=== PATIENT | male | born 1960 | race Caucasian/White ===

== ENCOUNTER 2025-07-30 19:13 | Inpatient (IN) | payer OTHER, MEDICARE ==
[~2025-07-30] VITALS: Ht 177.8 cm; Wt 83.2 kg
[2025-07-30 20:06] LABS: MEAN PLATELET VOLUME 8.4 FL (7.4-10.4); RED CELL DISTRIBUTION WIDTH 13.1 % (11.5-14.5)
[2025-07-30 20:22] LABS: CREATININE 1.20 MG/DL (0.60-1.10); TOTAL CARBON DIOXIDE 23.3 MMOL/L (24-32); eCRCL 63 ML/MIN; eGFR 61 ML/MIN
--- NOTE | 2025-07-30 21:54 | Physician Documentation ---
History of Present Illness ~ Chief Complaint: Abdominal Pain Stated Complaint: STOMACH ACHE LOWER BELLY Time Seen by MD: 21:53 Mode of Arrival: POV HPI Patient presented to the emergency room with one-week history of abdominal pain that has been gradually worsening. No significant alcohol use. Bladder and bowel are normal. No nausea. Medication Reconciliation Allergies: Coded Allergies: No Known Allergies (Unverified , 07/30/25) Review of Systems ROS All review of systems negative except as per HPI Physical Exam Vital Signs: Temperature: 97.5, Source: Temporal, Heart Rate: 80, Respiratory Rate: 16, BP: 189/102, Pulse Oximetry: 98, Weight: 83.200 Oxygen Flow Rate: 0 Physical Exam General: Patient is awake, alert, oriented x4. Appears uncomfortable Head: Normocephalic and atraumatic. Eyes: Conjunctival normal. EOMI. PERRL. ENT: Mucous membranes moist. Neck: Supple, trachea is midline. Chest: Clear to auscultation bilaterally without rales, rhonchi, or wheezes. There is no accessory muscle use or retractions. Cardiac: RRR without murmurs, gallops, or rubs. Abd: Soft, nondistended, nontender, with normoactive bowel sounds. No guarding, rebound, or rigidity. Progress Results/Orders Results/Orders Orders - MICHAEL JONES MD Urinalysis, Cult If Indicated (07/30/25 19:25) Completed Orders - MICHAEL JONES MD Cbc/Diff (07/30/25 19:25) BMP (07/30/25 19:25) Lipase (07/30/25 19:25) CMP (07/30/25 19:25) Vital Signs 07/30/25 07/30/25 07/30/25 19:20 21:30 21:39 Temp 97.5 Pulse 90 80 Resp 16 16 16 B/P (MAP) 155/91 189/102 (131) Pulse Ox 97 98 O2 Flow Rate 0 0 Laboratory Tests Test 07/30/25 19:58 White Blood Count 15.6 H Red Blood Count 5.18 Hemoglobin 16.2 Hematocrit 47.3 Mean Corpuscular Volume 91.3 Mean Corpuscular Hemoglobin 31.4 H Mean Corpuscular Hemoglobin Concent 34.4 Red Cell Distribution Width 13.1 Platelet Count 262 Mean Platelet Volume 8.4 Neutrophils (%) (Auto) 76.6 H Lymphocytes (%) (Auto) 14.5 L Monocytes (%) (Auto) 7.5 Eosinophils (%) (Auto) 0.6 Basophils (%) (Auto) 0.8 Neutrophils # (Auto) 11.9 H Lymphocytes # (Auto) 2.3 Monocytes # (Auto) 1.2 H Eosinophils # (Auto) 0.1 Basophils # (Auto) 0.1 CBC Comment Sodium Level 138 Potassium Level 4.0 Chloride Level 102 Carbon Dioxide Level 23.3 L Anion Gap 13 Blood Urea Nitrogen 12 Creatinine 1.20 H Estimated GFR/1.73 m2 61 BUN/Creatinine Ratio 10.0 Glucose Level 114 H Calcium Level 9.5 Total Bilirubin 0.9 Aspartate Amino Transf (AST/SGOT) 13 Alanine Aminotransferase (ALT/SGPT) 20 Alkaline Phosphatase 85 Total Protein 8.3 H Albumin 3.8 Globulin 4.5 H Albumin/Globulin Ratio 0.8 L Lipase > 375 H Chemistry Comments Medical Decision Making Findings Patient presents to the emergency room for evaluation of abdominal pain as per HPI. Differentials include but are not limited to gastritis cholecystitis pancreatitis diverticulitis kidney stone small-bowel obstruction therefore emergent labs ordered. Labs show severe pancreatitis. No history of alcohol abuse. Liver enzymes are reassuring IV fluids initiated along with pain management. Given severe elevation of lipase along with unknown cause for patient's pancreatitis we will admit for further investigation/treatment. Departure Admitted to Inpatient Unit: yes, to hospitalist Impression: Primary Impression: Pancreatitis Condition: Guarded Referrals: NO PRIMARY CARE PROVIDER (PCP) Signature Scribe Signature: No scribe Attestation: The note accurately reflects work and decisions made by me.Michael Jones MD 07/30/25 22:20 MICHAEL JONES MD Jul 30, 2025 21:54
[2025-07-30] MEDS: normal saline 1000ML IV soln IVB ONE (22:48)
[2025-07-30] MEDS: ondansetron/PF 4mg/2ml inj IV ONE (22:49)
[2025-07-30] MEDS: morphine 4 MG/ML inj SYRINge IV ONE (22:51)
[2025-07-30] MEDS ORDERED: ASPI-1265 PO (22:53)
[2025-07-30 23:07] LABS: CHOL/HDL RATIO 4.9 (0.00-4.99); LDL CHOLESTEROL 141 MG/DL (50-100)
[2025-07-30 23:15] LABS: LEUKOCYTE ESTERASE ,URINE NEGATIVE (Neg); NITRITES, URINE NEGATIVE (Neg); OCCULT BLOOD,URINE NEGATIVE (Neg)
[2025-07-30 23:20] LABS: UA COLLECTION TYPE CLN CATCH MIDSTREAM
[2025-07-30] MEDS ORDERED: ondansetron/PF 4mg/2ml inj IV PRN (23:30)
[2025-07-30] MEDS ORDERED: magnesium Cl slow-release 64mg tablet PO PRN (23:30)
[2025-07-30] MEDS ORDERED: magnesium sulf-water 2g/50mL 50 ML IV PRN (23:30)
[2025-07-30] MEDS ORDERED: potassium Cl 40MEQ/1/2NS 520ml 520 ML IV PRN (23:30)
[2025-07-30] MEDS ORDERED: potassium Cl 20 mEq SR tablet PO PRN ×2 (23:30)
[2025-07-30] MEDS ORDERED: magnesium sulf-water 4G/100mL 100 ML IV PRN (23:30)
--- NOTE | 2025-07-30 23:36 | HISTORY AND PHYSICAL-Residence ---
History & Physical Providers to CC Resident Creating Document: ALEX GREGG RES ~ History of Present Illness Reason for Admit\Complaint: abdominal pain History of Present Illness Patient is a 65-year-old male with no significant past medical history, not on any regular medications except for daily baby aspirin, who presents with a abdominal pain for the past one week. The pain was initially intermittent, waxing and waning, located in the periumbilical region. Since yesterday, the pain has progressively worsened, now localized to the hypogastric region. He described it as a stabbing in nature, rated 8/10 at its speak last night, prompting him to seek medical attention. No aggravating or relieving factors. He denies nausea, vomiting, fever, or chills. He has not noted any changes in bowel habits. He has not seen a primary care physician for the past 15 years. Social history is notable for smoking one pack of cigarettes daily for the past 20 years. He denies alcohol use or recreational drugs. Allergies: Coded Allergies: No Known Allergies (Unverified , 07/30/25) Home Medications Home Medications Active Reported Aspirin 81 Mg Tab.chew 1 Tab PO DAILY 30 Days Past Medical History Past Medical History Noncontributory Past Surgical History Surgical History Comment Noncontributory Past Social History Social History Comment He has not seen a primary care physician for the past 15 years. Social history is notable for smoking one pack of cigarettes daily for the past 20 years. He denies alcohol use or recreational drugs. ROS All Other Systems: Reviewed and Negative ROS As stated above in the HPI, otherwise all systems are reviewed and negative. Exam Vitals: Vital Signs Date Time Temp Pulse Resp B/P (MAP) Pulse Ox O2 Delivery O2 Flow Rate FiO2 07/30/25 22:54 97 16 197/102 (133) 97 0 07/30/25 19:20 97.5 General: Awake and Alert, no acute distress. HEENT: Conjunctiva pink, Sclera clear, Mucus Membranes moist. Neck: Supple without masses and tenderness. Resp: Unlabored. Lungs clear to auscultation bilaterally. Heart: Regular Rate and rhythm, normal S1 and S2 without murmur, rub or gallop. Abdomen: Epigastric, hypogastric, and periumbilical region tenderness. Bowel sounds present Extremities: No cyanosis,clubbing or edema. Skin: Warm and Dry. Diagnostic Data Last Recorded Lab Results: 07/30/[id number]/[id number]/251957 Advance Care Planning Advanced Care plannin - 30 Minutes Additional Plan Assessment and plan 1. Abdominal Pain, most likely acute pancreatitis Progressively worsening, one week duration, stabbing, hypogastric region No history of gallstones, alcohol use, hyper triglyceridemia, or medication that may cause pancreatitis. Autoimmune disease not suspected Plan: Aggressive IV hydration, received NS 2 L bolus in ER Continue LR 150 mL/hours Pain management; morphine Monitor electrolytes, renal function, and hematocrit closely Abdominal ultrasound ordered to assess for gallstones, biliary pathology Consider CT abdomen/pelvis with IV contrast after 48-72 hours 2. Hypertensive emergency BP 197/107 + ODALIS Not on home medications Labetalol 10 mg IV Amlodipine 10 mg p.o. daily Add another antihypertensive i.e. lisinopril if BP remains above the goal 3. Acute kidney injury, likely prerenal Unknown baseline. Poor oral intake because of abdominal pain IV hydration, continue LR 150 mL/hour Monitor BMP 4. Hyperlipidemia LDL 141, goal less than 70 Amlodipine 10 mg p.o. daily initiated 5. Tobacco use disorder Smokes one pack per day for 20 years Initiated smoking cessation counseling Nicotine replacement therapy Code status: Full code DVT prophylaxis: Bryanx Alex Gregg Internal Medicine Resident Addendum I saw and discussed the pt with the resident team and agree with assessment and plan as documented Date of Service: Jul 30, 2025 Billing Provider: TALA PIERCE MD, SHAMS, RES Jul 30, 2025 23:36 TALA PIERCE MD Jul 31, 2025 07:17
[2025-07-31] VITALS (7 sets, daily range): BP systolic 92–165; BP diastolic 48–84; PULSE 70–88; RESP 16–20; TEMP 96.1–98.3; O2SAT 95–98
[2025-07-31] MEDS: labetalol 20mg/4ml (5mg/ml) syringe IV ONE (00:19)
[2025-07-31] MEDS: nicotine 21mg patch - 24 hr TD ONE (00:25)
[2025-07-31] MEDS: ringers solution, lacted 1,000 ML IV SCH (00:27)
[2025-07-31 01:01] LABS: CREATININE,URINE RANDOM 244.0 MG/DL; UA UREA RANDOM 1143.0 MG/DL
[2025-07-31] MEDS: hydrALAZINE 20mg/ml inj. IV ONE (01:09)
[2025-07-31 01:56] LABS: MEAN PLATELET VOLUME 8.4 FL (7.4-10.4); RED CELL DISTRIBUTION WIDTH 13.4 % (11.5-14.5)
[2025-07-31 02:10] LABS: CREATININE 1.19 MG/DL (0.60-1.10); TOTAL CARBON DIOXIDE 24.0 MMOL/L (24-32); eCRCL 64 ML/MIN; eGFR 61 ML/MIN
[2025-07-31] MEDS: HYDROcodone/acetaminophen 5mg/325mg tablet PO PRN (02:37)
[2025-07-31] MEDS: K and/or MAG REPLACEMENT MC SCH (08:00)
[2025-07-31] MEDS: enoxaparin 40mg/0.4ml syringe SUBCUT SCH (11:00)
--- NOTE | 2025-07-31 11:19 | RADIOLOGY REPORT ---
US ULTRASOUND OF ABDOMEN HISTORY: pancreatitis, looking for gallstones COMPARISON: None TECHNIQUE: Transverse and longitudinal grayscale and color sonographic images were obtained of the ab domen. FINDINGS: Liver: - Size: 14.4 cm - Echogenicity: Normal - Surface Contour: Smooth - Liver Lesion(s): None - Portal Vein: Patent and forward flowing. - Bile Ducts: Normal. The common bile duct measures 4.8 mm. Gallbladder: Normal. The sonographic ch sign is negative. Pancreas: Not well visualized. Kidneys: - Right kidney size: 10.8 cm. There is no hydronephrosis, renal calculi, or mass lesion. Aorta and Inferior Vena Cava: The visualized portions of the abdominal aorta and intrahepatic vena ca va are normal. Other: None IMPRESSION: Unremarkable abdominal ultrasound. Pancreas appears unremarkable and not well visualized.
--- NOTE | 2025-07-31 15:06 | PROGRESS NOTE- Residence ---
Progress Note - Resident Providers to CC Resident Creating Document: MINI KEARNS RES ~ Antibiotic Timeout Antibiotic Ordered?: No Subjective Patient was seen and examined at bedside. He states that his abdominal pain is minimal now, 3/10 severity. No new complaints were reported and wondering the etiology of his pancreatitis. He has good appetite and is able to tolerate clear liquids. He is not in apparent distress. He denies any past regular meds taking including ANti psych and anti convulsants, no Hx of EtoH usage recently and with no knowledge of having diagnosed any symptomatic gall bladder stones before. Asked for the nicotine patch for smoking craving this am. Objective Vital Signs Date Time Temp Pulse Resp B/P (MAP) Pulse Ox O2 Delivery O2 Flow Rate FiO2 07/31/25 11:15 75 130/75 (93) 95 Room Air 07/31/25 10:06 96.1 20 07/31/25 08:00 0.0 Result Diagram: 07/31/25 0141 07/31/25 0141 Awake , alert, and oriented x4, resting comfortably in the bed, in no acute distress HEENT: Atraumatic, normocephalic, EOMI, anicteric sclera ; pink conjunctiva Neck: Trachea midline. Supple, full range of motion, no JVD Cardiac: Regular rhythm, regular rate with no murmurs all over the precordium. Respiratory: Equal breath sounds bilaterally, no tachypnea, no wheezing ,rub or rales, Chest wall is symmetric and without deformity. Gastrointestinal: Epigastric, periumbilical and hypogastric tenderness, Abdomen symmetric, soft, non-distended, no organomegaly, normal bowel sounds x4 quadrant, Musculoskeletal: No pedal edema, no cyanosis Neurological: Speech is clear, alert, and oriented x 4. No motor or sensory deficit, deep tendon reflexes normal, cerebellar intact. Cranial nerves II-XII intact. Skin: Warm and dry Assessment Assessment 65-year-old male with no significant diagnosed past medical history with no regular visit to PCP presented with worsening of acute periumbilical abdominal pain with no radiation who was admitted for the possible acute pancreatitis with highly elevated Lipase. Plan Plan 1. Acute Abdominal Pain, most likely acute pancreatitis induced with possible CBD stone Progressively worsening, one week duration, stabbing, hypogastric region No history of gallstones, alcohol use, trauma, hyper triglyceridemia, hypercalcemia or medication that may cause pancreatitis. Autoimmune disease not suspected Lipase elevated- >375, neutrophilic leukocytosis Plan: 07/31/25: Aggressive IV hydration - Continue LR 150 mL/hour Pain management: Rainelle 10 mg q.6h, discontinued morphine PRN to avoid unnecessary Sphincter of Oddi spasm Abdominal ultrasound shows pancreas unremarkable, common bile duct measures 4.8 mm. Consider possibility of gallstone being already lodged out of CBD before abdomen US. We advance full liquids if he tolerates clear liquids and ordered Pantop p.o. Monitor electrolytes including Calcium, renal function, and CBC closely Consider CT abdomen/pelvis with IV contrast after 48-72 hours if complications. Ruled out the etiology of acute pancreatitis from HyperTG, EtOH induced, viral induced, meds induced etc. 2. Hypertensive emergency BP 197/107 + ODALIS Not on home medications Labetalol 10 mg IV and hydralazine 10 mg IV were given Amlodipine 10 mg p.o. daily was started Add another antihypertensive i.e. lisinopril if BP remains above the goal 07/31/25: Possible HTN Urgency to rule out HTN emergency with no previous baseline record to be compared with Blood pressure reached the goal and maintaining Continue amlodipine 10 mg 3. Acute kidney injury, likely prerenal secondary to dehydration Unknown baseline. Poor oral intake because of abdominal pain Urinalysis shows positive ketones, probably due to dehydration IV hydration, continue LR 150 mL/hour Monitor BMP 4. Hyperlipidemia LDL 141, goal less than 70 07/31/25: TG 121 -continue atorvastatin 10 mg daily -plan to follow up with the PCP to recheck lipid profile in 3-6 months, including potential collateral effects of statin medication for medication compliance 5. Tobacco use disorder Smokes one pack per day for 20 years Initiated smoking cessation counseling Nicotine replacement therapy 07/31/25: Hypotension collateral effects of nicotine patch including coronary spasm was explained to the patient -prescribed nicotine patch 14 mg daily as needed -strongly encouraged to cut down/stopped smoking cigarettes with the encouragement Code status: Full code DVT prophylaxis: sc Lovenox GI prophylaxis: Pantoprazole Pain management: Rainelle Diet/nutrition: Clear liquid Prognosis: Guarded Disposition: Continue IV fluids, plan to advance full liquid diet if patient tolerates the pain while encouraging oral feeding, monitor electrolytes and renal function, PT eval and DC plan. Resident attestation: The patient note has been reviewed and supervised by senior residents PGY-3, Kristin Young Patient was seen, examined and discussed with attending physician Dr Francia Kearns MD Internal Medicine resident, PGY-1 [facility] Date of Service: Jul 31, 2025 Billing Provider: ALEX PORTILLO MD Common Visit Codes: [id number] INP/OBS CARE(HIGH) MINI KEARNS RES Jul 31, 2025 15:06 KRISTIN YOUNG RES Jul 31, 2025 18:31 ALEX PORTILLO MD Aug 01, 2025 09:56
[2025-07-31] MEDS: nicotine 14mg patch - 24hr TD SCH (16:34)
[2025-08-01 06:00] VITALS: BP 135/71; PULSE 70; RESP 15; TEMP 97.6; O2SAT 96
[2025-08-01 06:17] LABS: MEAN PLATELET VOLUME 8.8 FL (7.4-10.4); RED CELL DISTRIBUTION WIDTH 13.1 % (11.5-14.5)
[2025-08-01 06:30] LABS: CREATININE 1.04 MG/DL (0.60-1.10); TOTAL CARBON DIOXIDE 29.0 MMOL/L (24-32); eCRCL 73 ML/MIN; eGFR 72 ML/MIN
[2025-08-01 08:00] VITALS: RESP 16; O2SAT 96
[2025-08-01] MEDS: pantoprazole 40mg Tablet.DR PO SCH (08:39)
[2025-08-01 10:00] VITALS: BP 134/86; PULSE 81; RESP 14; TEMP 97.8; O2SAT 96
--- NOTE | 2025-08-01 15:21 | DISCHARGE SUMMARY-Residence ---
Discharge Summary Providers to CC Resident Creating Document: MINI KEARNS RES ~ Discharge Summary Admission Diagnosis: Acute Pancreatitis, hypertensive urgency Hospital Course DATE OF ADMISSION: 07/30/25 DATE OF DISCHARGE: 08/01/25 Discharge Diagnosis\Comment: Acute Abdominal Pain, most likely acute pancreatitis, unknown etiology at the time of discharge Hypertensive emergency Acute kidney injury, likely prerenal secondary to dehydration Hyperlipidemia Tobacco use disorder Operations\Procedures: None Consultants: None Complications: None Condition on DC: Stable Continued Medications: Aspirin (Aspirin) 81 Mg Tab.chew 1 TAB PO DAILY for 30 Days, #30 TAB Discharge Summary: HPI as per admitting physician: Patient is a 65-year-old male with no significant past medical history, not on any regular medications except for daily baby aspirin, who presents with an abdominal pain for the past one week. The pain was initially intermittent, waxing and waning, located in the periumbilical region. Since yesterday, the pain has progressively worsened, now localized to the hypogastric region. He described it as a stabbing in nature, rated 8/10 at its speak last night, prompting him to seek medical attention. No aggravating or relieving factors. He denies nausea, vomiting, fever, or chills. He has not noted any changes in bowel habits. He has not seen a primary care physician for the past 15 years. Social history is notable for smoking one pack of cigarettes daily for the past 20 years. He denies alcohol use or recreational drugs. Hospital course: 65-year-old male with no significant past medical history presented to the ER with abdominal pain in periumbilical region since 1 week. He stated that his stabbing pain progressively worsened, 8/10 and does not seem to be aggravated by intake of food or movement. He has no history of gallstones, alcohol use, tr auma, hyper triglyceridemia, hypercalcemia and does not use any medications that might cause pancreatitis. Autoimmune disease was not suspected. His lipase was high-375, and had neutrophilic leukocytosis. He was started on NPO and initiated on IV fluids and pain medication. His blood pressure was 189/102 and he was started on IV labetalol and IV hydralazine. He is not a known hypertensive and does not take any medication except baby aspirin sometimes. He was started on amlodipine 10 mg p.o and his blood pressure downtrended. His creatinine was high-1.2 and downtrended after IV fluids. We have no baseline creatinine. He had ODALIS, probably due to dehydration. His LDL was high-141, Triglyceride was 121, serum calcium was not severely decreased, and was given atorvastatin 10 mg. His abdominal ultrasound showed unremarkable pancreas with CBD of 4.8 mm. Gallstone pancreatitis was ruled out. His pain was reduced and his lipase downtrended to 192 the next day. His bowel movements were regular, and has been able to tolerate clear liquids which were advanced to full liquids as soon as possible, and then regular diet on the day of the discharge. He was strongly encouraged to establish care with a PCP and follow up. Patient did not experience further complications throughout the entire hospital stay. Patient was seen and examined on the day of discharge. All labs, diagnostic workups, discharge plan discussed with the patient in detail during visit before discharge. All questions and concerns answered to the best of my professional knowledge. Imaging: Abdomen US-07/31/25 Unremarkable abdominal ultrasound. Pancreas appears unremarkable and not well visualized. Vital Signs Date Time Temp Pulse Resp B/P (MAP) Pulse Ox O2 Delivery O2 Flow Rate FiO2 08/01/25 10:00 97.8 81 14 134/86 (102) 96 Room Air 07/31/25 08:00 0.0 Laboratory Tests Test 07/30/25 19:58 07/30/25 22:02 07/31/25 01:41 08/01/25 05:30 White Blood Count 15.6 X10'3 13.6 X10'3 9.3 X10'3 Red Blood Count 5.18 X10'6 4.59 X10'6 4.71 X10'6 Hemoglobin 16.2 g/dl 14.4 g/dl 14.6 g/dl Hematocrit 47.3 % 42.2 % 43.4 % Mean Corpuscular Volume 91.3 FL 91.9 FL 92.1 FL Mean Corpuscular Hemoglobin 31.4 PG 31.3 PG 31.1 PG Mean Corpuscular Hemoglobin Concent 34.4 g/dL 34.0 g/dL 33.7 g/dL Red Cell Distribution Width 13.1 % 13.4 % 13.1 % Platelet Count 262 X10'3 199 X10'3 207 X10'3 Mean Platelet Volume 8.4 FL 8.4 FL 8.8 FL Neutrophils (%) (Auto) 76.6 % 63.7 % 55.3 % Lymphocytes (%) (Auto) 14.5 % 25.3 % 31.2 % Monocytes (%) (Auto) 7.5 % 9.5 % 10.8 % Eosinophils (%) (Auto) 0.6 % 0.7 % 1.9 % Basophils (%) (Auto) 0.8 % 0.8 % 0.8 % Neutrophils # (Auto) 11.9 X10'3 8.6 X10'3 5.1 X10'3 Lymphocytes # (Auto) 2.3 X10'3 3.4 X10'3 2.9 X10'3 Monocytes # (Auto) 1.2 X10'3 1.3 X10'3 1.0 X10'3 Eosinophils # (Auto) 0.1 X10'3 0.1 X10'3 0.2 X10'3 Basophils # (Auto) 0.1 X10'3 0.1 X10'3 0.1 X10'3 CBC Comment Sodium Level 138 MMOL/L 140 MMOL/L 142 MMOL/L Potassium Level 4.0 MMOL/L 3.9 MMOL/L 4.4 MMOL/L Chloride Level 102 MMOL/L 107 MMOL/L 107 MMOL/L Carbon Dioxide Level 23.3 MMOL/L 24.0 MMOL/L 29.0 MMOL/L Anion Gap 13 9 6 Blood Urea Nitrogen 12 MG/DL 10 MG/DL 8 MG/DL Creatinine 1.20 MG/DL 1.19 MG/DL 1.04 MG/DL Estimated GFR/1.73 m2 61 ML/MIN 61 ML/MIN 72 ML/MIN BUN/Creatinine Ratio 10.0 8.4 7.7 Glucose Level 114 MG/DL 104 MG/DL 95 MG/DL Calcium Level 9.5 MG/DL 8.3 MG/DL 9.3 MG/DL Total Bilirubin 0.9 MG/DL 0.8 MG/DL 1.0 MG/DL Aspartate Amino Transf (AST/SGOT) 13 U/L 9 U/L 11 U/L Alanine Aminotransferase (ALT/SGPT) 20 U/L 20 U/L 14 U/L Alkaline Phosphatase 85 IU/L 69 IU/L 65 IU/L Total Protein 8.3 G/DL 6.6 G/DL 6.7 G/DL Albumin 3.8 G/DL 3.1 G/DL 3.1 G/DL Globulin 4.5 G/DL 3.5 G/DL 3.6 G/DL Albumin/Globulin Ratio 0.8 0.9 0.9 Triglycerides Level 121 MG/DL Cholesterol Level 194 MG/DL LDL Cholesterol 141 MG/DL HDL Cholesterol 40 MG/DL Cholesterol/HDL Ratio 4.9 Lipase > 375 U/L 192 U/L Chemistry Comments Urine Specimen Description Cln catch midstream Urine Color Yellow Urine Clarity Clear Urine pH 5.5 Urine Specific [place] >=1.030 Urine Protein Negative mg/dl Urine Glucose (UA) Negative mg/dl Urine Ketones Trace mg/dl Urine Occult Blood Negative Urine Nitrite Negative Urine Bilirubin Small Urine Urobilinogen 0.2 E.U/dL Urine Leukocyte Esterase Negative Urine Culture Indicated Not ind Volume Urine Centrifuged 10 ml Urine Random Creatinine 244.0 MG/DL Urine Random Sodium 126 MEQ/L Urine Random Urea 1143.0 MG/DL Urine Comment Examination at discharge: General: Awake , alert, and oriented x4, resting comfortably in the bed, in no acute distress HEENT: Atraumatic, normocephalic, EOMI, anicteric sclera ; pink conjunctiva Neck: Trachea midline. Supple, full range of motion, no JVD Cardiac: Regular rhythm, regular rate with no murmurs all over the precordium. Respiratory: Equal breath sounds bilaterally, no tachypnea, no wheezing ,rub or rales, Chest wall is symmetric and without deformity. Gastrointestinal: Abdomen symmetric, non-distended, soft, non-tender, normal bowel sounds x4 quadrant, normoactive, no hepatosplenomegaly Musculoskeletal: No pedal edema, no cyanosis Neurological: Speech is clear, alert, and oriented x 4. No motor or sensory deficit, deep tendon reflexes normal, cerebellar intact. Cranial nerves II-XII intact. Skin: Warm and dry Advise at discharge: Follow up with the PCP in 1-2 weeks Recommended to monitor blood pressure and discuss with PCP. Advised to test for Lipid profile in 3-6 months Strongly encouraged to quit smoking Come to ER or call 911 if you get another episode of severe abdominal pain, fever with chills and rigors etc, as we have to evaluate the cause. Resident MD attestation: The patient note has been reviewed and supervised by senior residents PGY-3 Dr Young Patient was seen, examined and discussed with attending physician, Dr Francia Kearns MD Internal Medicine resident, PGY-1 [facility] *Problems/Diagnosis: (1) Acute pancreatitis (2) Hypertensive urgency (3) Acute kidney injury (4) Hyperlipidemia (5) Tobacco use disorder Total Time Spent on D/C: > 30 Minutes Date of Service: Aug 01, 2025 Billing Provider: ALEX PORTILLO MD Common Visit Codes: 38903-[id number] DISCH DAY >30min MINI KEARNS, RES Aug 01, 2025 14:44 KRISTIN YOUNG, RES Aug 01, 2025 18:15 ALEX PORTILLO MD Aug 02, 2025 07:22
== END 2025-08-01 17:37 | disposition home or self-care (01) | DRG 439 ==
LOC: ER 19:16 → ED HOLD 23:10 → ORTHO 4S 07-31 01:49
PROVIDERS: ADMIT Internal Medicine; ATTEND Internal Medicine
DX: K85.90 Acute pancreatitis without necrosis or infection, unspecified (principal); I16.1 Hypertensive emergency; N17.9 Acute kidney failure, unspecified; F17.210 Nicotine dependence, cigarettes, uncomplicated; E78.5 Hyperlipidemia, unspecified; E86.0 Dehydration; Z71.6 Tobacco abuse counseling; Z79.899 Other long term (current) drug therapy
CPT/HCPCS: 36415; 76700; 80053; 80061; 81003; 82570; 83690; 84300; 84540; 85025; 87081; 96374; 96375; 99291; G0378; J0360; J1650; J2270; J2405; J3490; J7030; J7120